=== PATIENT | male | born 1985 | race African-American/Black ===

== ENCOUNTER 2020-10-16 15:57 | Emergency (ER) | payer OTHER ==
--- NOTE | 2020-10-16 17:05 | RAD ---
Radiograph right foot 3 views: 10/16/2020 HISTORY: Acute traumatic right great toe pain from blunt trauma FINDINGS: No fracture is visualized. No dislocation. Mild DJD at first MTP joint. The rest of the joints appear normal. The rest of the bones of the foot appears normal. IMPRESSION: 1. No acute fracture identified. 2. 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
== END 2020-10-16 17:40 | disposition home or self-care (01) ==
LOC: ERS 15:57
DX: S90.111A Contusion of right great toe without damage to nail, initial encounter (principal); J45.909 Unspecified asthma, uncomplicated; W22.8XXA Striking against or struck by other objects, initial encounter

== ENCOUNTER 2022-04-30 13:06 | Emergency (ER) | payer SELFPAY | END 2022-04-30 13:50 | disposition home or self-care (01) | LOC: ERS 13:06 | DX: B34.9 Viral infection, unspecified (principal); M79.10 Myalgia, unspecified site | CPT/HCPCS: 99282 ==